=== PATIENT | male | born 1995 | race Caucasian/White ===

== ENCOUNTER 2016-10-24 20:03 | Emergency (ER) | payer OTHER ==
[~2016-10-24] VITALS: Ht 180.3 cm; Wt 82.5 kg
[~2016-10-24 20:03] MED LIST: AMOXICILLIN 50500 MG PO; BUFFERED ASPIRIN; CEPHALEXIN500 M1 PO; CIPRO HC OTIC S10 ML OT; CLEOCIN HC150 MG/CAP PO; LORTAB 5/500 501 TAB PO; NO HOME MEDICATIONS; NORCO 325 MG-51 TAB PO; NORCO 325 MG-7.1 TAB PO; TYLENOL #3 301 UDTAB PO; ULTRAM 50MG TAB50 MG PO; antibiotic
[2016-10-24 20:07] VITALS: TEMP 97.3
[2016-10-24 20:38] LABS: BASO # 0.1 (0.0-0.2); BASO % 0.3 % (0.0-2.0); EOS # 0.1 (0.0-0.7); EOS % 0.4 % (0-4.0); GRAN # 13.5 (1.4-6.5); GRAN % 76.8 % (42.2-75.2); HEMATOCRIT 51.5 % (42.0-52.0); HEMOGLOBIN 17.5 g/dl (13.5-18.0); LYMPH # 2.4 (1.2-3.4); LYMPH % 13.6 % (20.0-51.0); MEAN CELL VOLUME 89 fl (80.0-100.0); MEAN CORPUSCULAR HEMOGLOBIN 30 pg (27.0-31.0); MEAN CORPUSCULAR HGB CONC 34 g/dl (33.0-37.0); MONO # 1.5 (0.1-0.6); MONO % 8.6 % (1.7-9.3); PLATELET COUNT 276 K/mm3 (130-400); RED BLOOD COUNT 5.82 M/mm3 (4.20-5.60); REDCELL DISTRIBUTION WIDTH-CV 11.9 % (11.5-14.5); WHITE BLOOD COUNT 17.5 K/mm3 (4.8-10.8)
[2016-10-24 20:46] LABS: CALCIUM 11.1 mg/dL (8.4-10.2); CREATININE, serum 1.74 mg/dL (0.66-1.25); POTASSIUM 4.9 mmol/L (3.4-5.0)
[2016-10-24 22:24] VITALS: BP 117/64; PULSE 72
== END 2016-10-24 22:29 | disposition home or self-care (01) ==
LOC: COL.ER 20:03
PROVIDERS: Emergency Medicine
DX: N17.9 Acute kidney failure, unspecified (principal); E86.0 Dehydration; R11.0 Nausea
CPT/HCPCS: J2550; J7030

== ENCOUNTER 2017-05-29 07:16 | Emergency (ER) | payer SELFPAY ==
[~2017-05-29] VITALS: Ht 180.3 cm; Wt 84.1 kg
[2017-05-29] MEDS ORDERED: IBU800 M1 PO (08:04)
[2017-05-29] MEDS ORDERED: NORCO 325 MG-7.1 TAB PO (08:04)
[2017-05-29 08:25] VITALS: BP 132/66; PULSE 53; TEMP 98.1
== END 2017-05-29 08:43 | disposition home or self-care (01) ==
LOC: COL.ER 07:16
DX: S20.211A Contusion of right front wall of thorax, initial encounter (principal); F17.210 Nicotine dependence, cigarettes, uncomplicated; W50.0XXA Accidental hit or strike by another person, initial encounter; Y93.67 Activity, basketball; Y92.830 Public park as the place of occurrence of the external cause
CPT/HCPCS: A9284

== ENCOUNTER 2017-06-18 11:07 | Emergency (ER) | payer SELFPAY ==
[~2017-06-18] VITALS: Ht 180.3 cm; Wt 84.1 kg
[~2017-06-18 11:07] MED LIST changes: +IBU800 M1 PO
[2017-06-18 11:16] VITALS: BP 135/63; PULSE 58; TEMP 98.8
== END 2017-06-18 13:09 | disposition home or self-care (01) ==
LOC: COL.ER 11:07
DX: S20.211A Contusion of right front wall of thorax, initial encounter (principal); F17.210 Nicotine dependence, cigarettes, uncomplicated; X58.XXXA Exposure to other specified factors, initial encounter; Y93.67 Activity, basketball

== ENCOUNTER 2018-09-10 05:51 | Emergency (ER) | payer SELFPAY ==
[~2018-09-10] VITALS: Ht 180.3 cm; Wt 90.9 kg
[2018-09-10 05:59] VITALS: BP 151/76; TEMP 97.1
[2018-09-10 07:09] VITALS: PULSE 61
== END 2018-09-10 07:10 | disposition home or self-care (01) ==
LOC: COL.ER 05:51
DX: T75.4XXA Electrocution, initial encounter (principal)
CPT/HCPCS: Q4021